=== PATIENT | female | born 1945 | race Caucasian/White ===

== ENCOUNTER 2025-01-04 12:43 | Outpatient (OUT) | payer MEDICARE, SELFPAY ==
--- NOTE | 2025-01-04 12:45 | MM_ITS ---
Patient Name: BATSHEVA OTOOLE MR#: [id number] : 1945 Exam Date: 01/04/2025 Ordering Doctor: DR JERI GONSALVES [facility] RADIOLOGY REPORT PROCEDURE: MM TOMOSYNTHESIS SCREENING BI COMPARISON: MM TOMOSYNTHESIS SCREENING BI, 12/13/2023. MM TOMOSYNTHESIS SCREENING BI, 11/29/2022. MM TOMOSYNTHESIS SCREENING BI, 10/19/2021. INDICATIONS: screening for malignant neoplasm of breast Calculator Name NCI Breast Cancer Risk Assessment Tool 5 Year Breast Cancer Risk 1.50% Lifetime Breast Cancer Risk 2.50% Personal Breast Cancer No Personal Ovarian Cancer No Treatments None Family Cancers None LOCATION: [facility] BREAST COMPOSITION: There are scattered areas of fibroglandular density. FINDINGS: RIGHT BREAST: No significant suspicious finding. Benign-appearing lymph nodes are noted along the chest wall. Benign-appearing calcifications are present. LEFT BREAST: No significant suspicious finding. Benign-appearing lymph nodes are noted along the chest wall. Benign-appearing calcifications are present. DIAGNOSTIC CATEGORY 2--BENIGN FINDING. NO CHANGE FROM COMPARISON. RECOMMENDATIONS: ROUTINE MAMMOGRAM AND CLINICAL EVALUATION IN 12 MONTHS. Dictated by: Derian Elder MD on 01/04/2025 at 16:06 Approved by: Derian Elder MD on 01/04/2025 at 16:13
== END 2025-01-04 12:44 | disposition home or self-care (01) ==
LOC: MAMMO 12:43
PROVIDERS: PCP Midwife; Visit Provider Midwife
DX: Z12.31 Encounter for screening mammogram for malignant neoplasm of breast (principal)
CPT/HCPCS: 77063; 77067